=== PATIENT | female | born 2000 | race Hispanic/Latino ===

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

== ENCOUNTER 2021-07-19 17:50 | Emergency (ER) | payer SELFPAY ==
[~2021-07-19] VITALS: Ht 154.9 cm; Wt 63.5 kg
== END 2021-07-19 18:59 | disposition home or self-care (01) ==
LOC: FSED 17:57
DX: O20.9 Hemorrhage in early pregnancy, unspecified (principal); R10.30 Lower abdominal pain, unspecified
CPT/HCPCS: 81003; 81025; 99282

== ENCOUNTER 2024-02-12 17:18 | Emergency (ER) | payer SELFPAY ==
[~2024-02-12] VITALS: Ht 149.9 cm; Wt 72.2 kg
[2024-02-12 17:25] VITALS: PULSE 87; RESP 16; TEMP 98.8
[2024-02-12] MEDS ORDERED: DEXAMETHASONE SOD PHOS 10 MG/1 ML VIAL IV ONE (18:00)
[2024-02-12] MEDS: KETOROLAC TROMETHAMINE 30 MG/ML VIAL IV STA (18:18)
[2024-02-12] MEDS: Morphine 4mg INJECTION 4 MG/ML INJ IV ONE (18:31)
[2024-02-12] MEDS ORDERED: IOPAMIDOL 370 MG/ML 100 ML INFUS..BTL INJ ONE (19:19)
[2024-02-12] MEDS ORDERED: CLEOCIN HCL150 MG PO (21:23)
[2024-02-12 22:00] VITALS: BP 122/84; PULSE 86; RESP 18; TEMP 98.8; O2SAT 99
== END 2024-02-12 22:00 | disposition home or self-care (01) ==
LOC: FSED 17:20
DX: K08.89 Other specified disorders of teeth and supporting structures (principal); K04.7 Periapical abscess without sinus
CPT/HCPCS: 70487; 80053; 85025; 99284; J1100; J1885; J2270; Q9967